=== PATIENT | male | born 1995 | race Caucasian/White ===

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

== ENCOUNTER 2017-12-15 23:12 | Emergency (ER) | payer BC, OTHER ==
[2017-12-15] MEDS ORDERED: DICYCLOMINE 20 MG TAB PO STA (23:41)
--- NOTE | 2017-12-16 00:04 | ED ---
Abdominal Pain HPI - General Chief Complaint: Abdominal Pain Stated Complaint: ABD PAIN Time Seen by Provider: 12/15/17 23:21 Source: patient Mode of arrival: ambulatory Limitations: no limitations - History of Present Illness Initial Comments: This patient is 22-year-old man who presents to be evaluated for left upper quadrant pain. He states that he had noted the pain Thursday morning when he got out of bed. He is not able to characterize the pain well stating that it just hurts. Pain is moderate, constant, and he is noted that it is worse with movement or if he presses there. No relieving factors. He has not had any associated symptoms but there may possibly be an element of constipation. MD Complaint: abdominal pain Onset/Timin -: days(s) Location: LUQ Migration to: no migration Severity: moderate Quality: other (Unable to characterize) Consistency: constant Improves With: nothing Worsens With: movement Associated Symptoms: denies other symptoms - Related Data Home Medications Medication Instructions Recorded Confirmed Atomoxetine HCl [Strattera] 60 mg PO QAM 03/13/15 12/15/17 Fexofenadine HCl [Dorothea Allergy] 180 mg PO DAILY 12/15/17 12/15/17 Ibuprofen [Motrin] 600 mg PO DAILY 12/15/17 12/15/17 Kapvay(Clonidine) Er 0.1mg 0.2 mg PO 12/15/17 12/15/17 Paxil Cr 50mg 50 mg PO DAILY 12/15/17 12/15/17 lamoTRIgine [LaMICtal] 75 mg PO HS 12/15/17 12/15/17 lamoTRIgine [LaMICtal] 150 mg PO QA 12/15/17 12/15/17 traZODone HCL 150 mg PO 12/15/17 12/15/17 Allergies Allergy/AdvReac Type Severity Reaction Status Date / Time Cephalosporins Allergy Anaphylaxis Verified 12/15/17 23:28 Review of Systems ROS Statement: Those systems with pertinent positive or pertinent negative responses have been documented in the HPI. ROS Other: All systems not noted in ROS Statement are negative. Constitutional: Denies: fever, chills Respiratory: Denies: cough, dyspnea Cardiovascular: Denies: chest pain, palpitations Gastrointestinal: Reports: abdominal pain, constipation. Denies: nausea, vomiting, diarrhea, melena, hematochezia Genitourinary: Denies: dysuria, frequency, hematuria, testicular pain, testicular mass Musculoskeletal: Denies: back pain Skin: Denies: rash Neurological: Denies: headache Past Medical History Additional Past Medical History / Comment(s): autism spectrum disorder History of Any Multi-Drug Resistant Organisms: None Reported Past Surgical History: Ear Surgery, Tonsillectomy Past Psychological History: Anxiety, Depression, Panic Disorder Smoking Status: Never smoker Past Alcohol Use History: None Reported Past Drug Use History: None Reported General Exam Limitations: no limitations General appearance: alert, in no apparent distress Head exam: Present: atraumatic, normocephalic Eye exam: Present: normal appearance. Absent: scleral icterus, conjunctival injection ENT exam: Present: normal oropharynx Respiratory exam: Present: normal lung sounds bilaterally. Absent: respiratory distress, wheezes, rales, rhonchi, stridor Cardiovascular Exam: Present: regular rate, normal rhythm, normal heart sounds. Absent: systolic murmur, diastolic murmur, rubs, gallop GI/Abdominal exam: Present: soft, tenderness, normal bowel sounds. Absent: distended, guarding, rebound, rigid, organomegaly, mass, pulsatile mass, hernia Extremities exam: Present: normal inspection, normal capillary refill. Absent: pedal edema, calf tenderness Back exam: Present: normal inspection. Absent: CVA tenderness (R), CVA tenderness (L) Neurological exam: Present: alert Skin exam: Present: warm, dry, intact, normal color. Absent: rash Course Vital Signs 12/15/17 12/16/17 23:12 00:16 Temperature 98.1 F 97.6 F Pulse Rate 112 H 97 Respiratory 20 18 Rate Blood Pressure 135/94 117/71 O2 Sat by Pulse 98 96 Oximetry Medical Decision Making - Lab Data Result diagrams: 12/16/17 00:13 12/16/17 00:13 Lab Results 12/16/17 12/16/17 12/16/17 Range/Units 00:13 00:13 00:13 WBC 7.6 (4.0-11.0) k/uL RBC 4.35 (4.30-5.90) m/uL Hgb 12.2 L (13.0-17.5) gm/dL Hct 35.5 L (39.0-53.0) % MCV 81.7 (80.0-100.0) fL MCH 28.1 (25.0-35.0) pg MCHC 34.4 (31.0-37.0) g/dL RDW 13.5 (11.5-15.5) % Plt Count 325 (150-450) k/uL Neutrophils % 52 % Lymphocytes % 33 % Monocytes % 9 % Eosinophils % 4 % Basophils % 1 % Neutrophils # 4.0 (1.3-7.7) k/uL Lymphocytes # 2.5 (1.0-4.8) k/uL Monocytes # 0.7 (0-1.0) k/uL Eosinophils # 0.3 (0-0.7) k/uL Basophils # 0.1 (0-0.2) k/uL Sodium 142 (137-145) mmol/L Potassium 4.0 (3.5-5.1) mmol/L Chloride 107 (98-107) mmol/L Carbon Dioxide 24 (22-30) mmol/L Anion Gap 11 mmol/L BUN 11 (9-20) mg/dL Creatinine 0.70 (0.66-1.25) mg/dL Est GFR (CKD-EPI)AfAm >90 (>60 ml/min/1.73 sqM) Est GFR (CKD-EPI)NonAf >90 (>60 ml/min/1.73 sqM) Glucose 97 (74-99) mg/dL Calcium 9.5 (8.4-10.2) mg/dL Total Bilirubin 0.3 (0.2-1.3) mg/dL AST 23 (17-59) U/L ALT 33 (21-72) U/L Alkaline Phosphatase 142 H (38-126) U/L C-Reactive Protein 25.3 H (<10.0) mg/L Total Protein 7.0 (6.3-8.2) g/dL Albumin 4.6 (3.5-5.0) g/dL Amylase 36 (30-110) U/L Lipase 66 (23-300) U/L Urine Color Yellow Urine Appearance Clear (Clear) Urine pH 6.5 (5.0-8.0) Ur Specific [place] 1.020 (1.001-1.035) Urine Protein Trace H (Negative) Urine Glucose (UA) Negative (Negative) Urine Ketones Negative (Negative) Urine Blood Negative (Negative) Urine Nitrite Negative (Negative) Urine Bilirubin Negative (Negative) Urine Urobilinogen 3.0 (<2.0) mg/dL Ur Leukocyte Esterase Negative (Negative) Disposition Clinical Impression: Abdominal pain Disposition: HOME SELF-CARE Condition: Good Instructions: Abdominal Pain (ED) Is patient prescribed a controlled substance at d/c from ED?: No Referrals: Jamaal Rogers MD [Primary Care Provider] - 1-2 days
[2017-12-16 00:17] VITALS: RESP 18
--- NOTE | 2017-12-16 00:17 | XR ---
EXAMINATION TYPE: XR KUB DATE OF EXAM: 12/16/2017 COMPARISON: 03/13/2015 HISTORY: Left upper quadrant pain TECHNIQUE: 2 views upright FINDINGS: There is no sign of intestinal obstruction or pneumoperitoneum. There is retained fecal mat erial. There are no pathologic calcifications. Lung bases are clear. There is no evidence of a mass. IMPRESSION: Nonacute abdomen. There is probably constipation. Constipation is less than last exam.
[2017-12-16 00:22] LABS: Basophils # (A) 0.1 k/uL (0-0.2); Basophils % (A) 1 %; Eosinophils # (A) 0.3 k/uL (0-0.7); Eosinophils % (A) 4 %; HCT 35.5 % (39.0-53.0); HGB 12.2 gm/dL (13.0-17.5); Lymphocytes # (A) 2.5 k/uL (1.0-4.8); Lymphocytes % (A) 33 %; MCH 28.1 pg (25.0-35.0); MCHC 34.4 g/dL (31.0-37.0); MCV 81.7 fL (80.0-100.0); Mean Platelet Volume 7.6; Monocytes # (A) 0.7 k/uL (0-1.0); Monocytes % (A) 9 %; Neutrophils % (A) 52 %; Platelet Count 325 k/uL (150-450); RBC 4.35 m/uL (4.30-5.90); RDW 13.5 % (11.5-15.5); WBC 7.6 k/uL (4.0-11.0)
[2017-12-16 00:34] LABS: ALT 33 U/L (21-72); AST 23 U/L (17-59); Albumin 4.6 g/dL (3.5-5.0); Alkaline Phosphatase 142 U/L (38-126); Amylase 36 U/L (30-110); Anion Gap 11 mmol/L; Blood Urea Nitrogen 11 mg/dL (9-20); C Reactive Protein 25.3 mg/L (<10.0); Calcium 9.5 mg/dL (8.4-10.2); Carbon Dioxide 24 mmol/L (22-30); Chloride 107 mmol/L (98-107); Glucose 97 mg/dL (74-99); Lipase 66 U/L (23-300); Sodium 142 mmol/L (137-145); Total Bilirubin 0.3 mg/dL (0.2-1.3)
[2017-12-16 00:36] LABS: Appearance,Urine Clear (Clear); Bilirubin,Urine Negative (Negative); Blood,Urine Negative (Negative); Color,Urine Yellow; Glucose,Urine (UA) Negative (Negative); Ketones,Urine Negative (Negative); Leukocyte Esterase,Urine Negative (Negative); Nitrite,Urine Negative (Negative); PH, Urine 6.5 (5.0-8.0); Protein,Urine Trace (Negative)
[2017-12-16] MEDS ORDERED: MAGNESIUM CITRATE 296 ML BOTTLE PO ONE (00:59)
[2017-12-16 01:22] VITALS: BP 147/64; PULSE 93; TEMP 97.8
== END 2017-12-16 01:22 | disposition home or self-care (01) ==
LOC: EC 23:12 → EEVIPCON 23:12 → EC 12-16 01:22
DX: R10.12 Left upper quadrant pain (principal); K59.00 Constipation, unspecified; F41.9 Anxiety disorder, unspecified; F32.9 Major depressive disorder, single episode, unspecified; F84.0 Autistic disorder; Z79.1 Long term (current) use of non-steroidal anti-inflammatories (NSAID); Z79.899 Other long term (current) drug therapy; Z88.1 Allergy status to other antibiotic agents
CPT/HCPCS: 36415; 74018; 80053; 81003; 82150; 83690; 85025; 86140; 99284

== ENCOUNTER → 2018-06-30 | Day surgery (SDC) | payer BC, MEDICARE, OTHER ==
[2018-06-22 12:52] VITALS: BMI 30.3
[~2018-06-30] MED LIST: CLINDAMYCIN 600 MG in DEXTROSE 5% IN WATER 50 ML IVPB ONE; DEXAMETHASONE SOD PHOS (MDV) 100 MG/10 ML VIAL ONE; DEXAMETHASONE SOD PHOSPHATE 10 MG/ML 1 ML VIAL IV ONE; DEXAMETHASONE SOD PHOSPHATE 4 MG/ML 1 ML VIAL IV ONE; FAMOTIDINE 20 MG/2 ML VIAL IV ONE; HYDROmorphone 0.5 MG/0.5 ML SYRINGE IVP PRN; LACTATED RINGERS 1,000 ML IV ONE; LACTATED RINGERS 1,000 ML IV SCH; LIDOCAINE 1% 20 ML VIAL (10MG/ML) FOR IV START INTRADERMA PRN; LIDOCAINE 1%-EPI 1:100,000 20 ML VIAL SQ ONE; MIDAZOLAM (PF) 2 MG/2 ML VIAL IV PRN; OFLOXACIN 0.3% OTIC DROPS 5 ML BTL BOTH EARS ONE; ONDANSETRON 4 MG/2 ML VIAL IVP ONE; ONDANSETRON 4 MG/2 ML VIAL ONE; OXYMETAZOLINE 0.05% NASL SPRAY 1 SPRAY BOTTLE MISCELLANE ONE; PHENYLEPHRINE-0.9% NACL SYG 1 MG/10 ML SYRINGE ONE; PROPOFOL 10 MG/ML 20 ML VIAL IV ONE; SCOPOLAMINE 1.5MG/72HR PATCH TRANSDERM ONE; SUCCINYLCHOLINE CHLORIDE VIAL 200 MG/10 ML VIAL IV ONE; fentaNYL (PF) 50 MCG/ML 2 ML AMP ONE
[2018-06-30] MEDS: OXYMETAZOLINE 0.05% NASL SPRAY 1 SPRAY BOTTLE NASAL ONE ×7 (09:48→10:11)
--- NOTE | 2018-06-30 11:32 | P.OP ---
Date of Procedure: 06/30/18 Preoperative Diagnosis: Chronic otitis media ALLERGIC rhinitis Chronic sinusitis Postoperative Diagnosis: Same Procedure(s) Performed: Bilateral ventilation tube placement Blood draw for ALLERGY testing Balloon sinus plasty of the bilateral maxillary, frontal, sphenoid sinuses Anesthesia: YULIANA Surgeon: Johnny Groves Estimated Blood Loss (ml): 3 Pathology: none sent Condition: stable Disposition: PACU Indications for Procedure: Is a 22-year-old white male whose had difficulties with chronic otitis media and chronic sinusitis as well as possible ALLERGIES. He's had multiple sets of ventilation tubes in the past Operative Findings: Bilateral serous otitis media with myringosclerosis bilaterally, narrowing and obstruction of the bilateral maxillary ostia, sphenoid ostia and frontal sinus ostia Description of Procedure: The patient was brought in the operative suite and placed in a supine position. Patient underwent induction of general anesthesia with oral endotracheal intubation without difficulty. The patient was prepped and draped in usual aseptic fashion. The Zeiss microscope was positioned over the left ear and cerumen was cleaned from the external auditory canal. An anteroinferior myringotomy was placed in radial fashion and the middle ear effusion was aspirated. A 1.27 mm T-tube ventilation tube was placed without difficulty. Ofloxacin drops were placed followed by sterile cotton ball. Attention was then turned to the right where the procedure was followed exactly as it had been on the left. Once this was completed the attention was turned to the nasal cavities. Full 0 endoscopic examination is performed bilaterally. The orbits were in the operating field for monitoring throughout the case. Beginning on the left the middle turbinate was medialized with a Hartley elevator. The maxillary ostia was noted to be obstructed as well as the sphenoid ostia and frontal ostia. Therefore these were all treated with balloon sinus plasty with the acclarent light guided system utilizing direct visualization as well as the light-tipped probe for localization of the lighted tip followed by the balloon sinus plasty. The ostia were then checked and were all patent. Attention was then turned to the right where the procedures were followed as they had been on the left including balloon sinus plasty of the maxillary sphenoid and frontal sinus. Once this was completed there was noted to be good hemostasis. Therefore no packing was placed. The patient was then suctioned in oral gastric fashion. The patient was allowed to emerge from general anesthesia having tolerated procedure well and was extubated in the operating suite and transferred to the postop recovery area in satisfactory condition.
[2018-06-30 11:54] VITALS: TEMP 97
[2018-06-30 12:29] VITALS: RESP 16
[2018-06-30 13:22] VITALS: BP 113/77; PULSE 92
== END | disposition home or self-care (01) ==
LOC: OR 09:35
PROVIDERS: ATTEND Otolaryngology
DX: H65.23 Chronic serous otitis media, bilateral (principal); H74.03 Tympanosclerosis, bilateral; J32.9 Chronic sinusitis, unspecified; J45.909 Unspecified asthma, uncomplicated; F32.9 Major depressive disorder, single episode, unspecified; F84.0 Autistic disorder; Z88.4 Allergy status to anesthetic agent; Z88.1 Allergy status to other antibiotic agents; Z79.1 Long term (current) use of non-steroidal anti-inflammatories (NSAID); Z79.899 Other long term (current) drug therapy
CPT/HCPCS: 69436; 31298; 31295; J0330; J2405; J3010; J1100; J2370; J2704

== ENCOUNTER → 2018-08-06 | Outpatient (CLI) | payer BC, MEDICARE, OTHER ==
[2018-08-06 15:22] LABS: Basophils % (A) 1 %; Eosinophils # (A) 0.2 k/uL (0-0.7); Eosinophils % (A) 3 %; HCT 39.4 % (39.0-53.0); HGB 13.3 gm/dL (13.0-17.5); Lymphocytes # (A) 2.9 k/uL (1.0-4.8); Lymphocytes % (A) 38 %; MCH 27.2 pg (25.0-35.0); MCHC 33.8 g/dL (31.0-37.0); MCV 80.5 fL (80.0-100.0); Mean Platelet Volume 11.4; Monocytes # (A) 0.5 k/uL (0-1.0); Monocytes % (A) 7 %; Neutrophils # (A) 3.7 k/uL (1.3-7.7); Neutrophils % (A) 50 %; Platelet Count 244 k/uL (150-450); RBC 4.89 m/uL (4.30-5.90); RDW 14.8 % (11.5-15.5); WBC 7.4 k/uL (4.0-11.0)
[2018-08-06 19:02] LABS: Albumin 4.8 g/dL (3.80-4.90); Albumin/Globulin Ratio 3.2 (1.60-3.17); Anion Gap 14.4 mmol/L (4.00-12.00); Calcium 9.4 mg/dL (8.7-10.3); Carbon Dioxide 19.6 mmol/L (21.6-31.8); Globulin 1.5 g/dL (1.6-3.3); LDL Cholesterol,Calculated 120.4 mg/dL (0.0-131.0); Potassium 4.7 mmol/L (3.5-5.5); Total Bilirubin 0.4 mg/dL (0.2-1.2); Total Protein 6.3 g/dL (6.2-8.2); VLDL Calculation 15.6 mg/dL (5.00-40.00)
[2018-08-06 22:16] LABS: Hemoglobin A1C 5.8 % (4.0-6.0)
== END | disposition home or self-care (01) ==
LOC: LABWHC1 11:19
PROVIDERS: ATTEND Internal Medicine
DX: E16.2 Hypoglycemia, unspecified (principal); D80.2 Selective deficiency of immunoglobulin A [IgA]
CPT/HCPCS: 36415; 80053; 80061; 82784; 83036; 85025

== ENCOUNTER → 2018-08-25 | Outpatient (CLI) | payer BC, MEDICARE, OTHER ==
[2018-08-25 12:59] VITALS: BMI 30.1
== END ==
LOC: DBWHC3 09:57
PROVIDERS: ATTEND Internal Medicine
DX: R73.09 Other abnormal glucose (principal)
CPT/HCPCS: 97802

== ENCOUNTER 2021-10-26 00:18 | Emergency (ER) | payer BC, MEDICARE, OTHER ==
[2021-10-26 01:18] VITALS: BP 107/69; PULSE 92; RESP 17; TEMP 98.2
--- NOTE | 2021-10-26 01:27 | ED ---
Head Injury HPI - General Stated complaint: Headache, stiff neck Time Seen by Provider: 10/26/21 01:17 Source: RN notes reviewed - History of Present Illness Initial comments: This is a pleasant 25-year-old male with a history of autism. He presents with his mother complaining of a headache which she started yesterday. However this headache is not currently present. He states he comes for a few minutes at a time and goes away. It involves the left side of his head and left neck area. Patient states this happened about 8 times and resolved. Patient has no significant history of headaches. Has been no fever. No numbness or tingling. No extremity weakness. No vision disturbance. No hearing disturbance. Patient states that the headache feels like a burning sensation when is there and then it goes away. no fever or chills, no changes in vision or hearing, no sore throat or difficulty with speech, no neck pain, no chest pain or shortness of breath, no abdominal pain, no nausea or vomiting, no changes in urination or patient has had some mild constipation recently, no numbness or tingling, no extremity pain, no skin rashes or lesions. - Related Data Home Medications Medication Instructions Recorded Confirmed Atomoxetine HCl [Strattera] 60 mg PO QAM 03/13/15 06/22/18 Kapvay(Clonidine) Er 0.1mg 0.2 mg PO HS 12/15/17 06/22/18 lamoTRIgine [LaMICtal] 75 mg PO HS 12/15/17 06/22/18 lamoTRIgine [LaMICtal] 150 mg PO QAM 12/15/17 06/22/18 Advil Liquid Gel 200 mg PO DAILY 06/22/18 Albuterol Inhaler [Ventolin Hfa 1 - 2 puff INHALATION RT-Q6H PRN 06/22/18 06/22/18 Inhaler] Cetirizine HCl [Zyrtec] 10 mg PO DAILY 06/22/18 06/22/18 Cholecalciferol (Vitamin D3) 2,000 unit PO 06/22/18 [Vitamin D3] Cholecalciferol (Vitamin D3) 2,000 unit PO DAILY 06/22/18 06/22/18 [Vitamin D3] Famotidine [Pepcid] 20 mg PO DAILY 06/22/18 06/22/18 PARoxetine HCL [Paxil Cr] 12.5 mg PO HS 06/22/18 06/22/18 PARoxetine HCL [Paxil Cr] 37.5 mg PO HS 06/22/18 06/22/18 [facility] Probioti 1 cap PO DAILY 06/22/18 diphenhydrAMINE [Benadryl] 25 mg PO HS 06/22/18 06/22/18 traZODone HCL 150 mg PO HS 06/22/18 06/22/18 Allergies/Adverse reactions: Allergies Allergy/AdvReac Type Severity Reaction Status Date / Time Cephalosporins Allergy Anaphylaxis Verified 10/26/21 01:13 corn Allergy Unknown Verified 10/26/21 01:13 midazolam [From Versed] Allergy combative Verified 10/26/21 01:13 milk Allergy Unknown Verified 10/26/21 01:13 wheat Allergy Unknown Verified 10/26/21 01:13 Review of Systems ROS Statement: Those systems with pertinent positive or pertinent negative responses have been documented in the HPI. ROS Other: All systems not noted in ROS Statement are negative. Past Medical History Past Medical History: Asthma, GERD/Reflux, Hearing Disorder / Deafness, Skin Disorder Additional Past Medical History / Comment(s): Autism Spectrum Disorder, mild. ANEMIC WHEN LITTLE. HX GROWTH HORMONE TX. HX MULT EAR INFECTIONS, SL HEARING LOSS. HYPERHYDROSIS. ALLERGIES; FREQ SINUS INFECTIONS; IGA DEFICIENCY. History of Any Multi-Drug Resistant Organisms: None Reported Past Surgical History: Adenoidectomy, Ear Surgery, Tonsillectomy Additional Past Surgical History / Comment(s): BMT, MANY. SINUS SURGRY. Past Anesthesia/Blood Transfusion Reactions: Previous Problems w/ Anesthesia, Family History of Problems w/ Anesthesia Additional Past Anesthesia/Blood Transfusion Reaction / Comment(s): AFTER TONSIL SURGERY, WAS PUT ON VENT BRIEFLY D/T BREATHING PROB; COMBATIVE WHEN GIVEN VERSED. MOTHER HAD BREATHING ISSUE X1. Past Psychological History: ADD/ADHD, Anxiety, Depression, Panic Disorder Additional Psychological History / Comment(s): NEEDLE/BLOOD PHOBIA Past Alcohol Use History: None Reported Past Drug Use History: None Reported - Past Family History Mother Family Medical History: Cancer Additional Family Medical History / Comment(s): CERVICAL General Exam - General Exam Comments Initial Comments: Vital signs stable, patient nontoxic appearing, no distress. General appearance: alert, in no apparent distress Head exam: Present: atraumatic, normocephalic, normal inspection Eye exam: Present: normal appearance, PERRL, EOMI. Absent: scleral icterus, conjunctival injection, periorbital swelling ENT exam: Present: normal exam, normal oropharynx, mucous membranes dry, mucous membranes moist, TM's normal bilaterally, normal external ear exam, other Neck exam: Present: normal inspection, full ROM, other (Tympanostomy tube noted in the left EAC embedded in cerumen, no evidence of infectious process). Absent: tenderness, meningismus, lymphadenopathy Respiratory exam: Present: normal lung sounds bilaterally. Absent: respiratory distress, wheezes, rales, rhonchi, stridor, chest wall tenderness, accessory muscle use, decreased breath sounds, prolonged expiratory Cardiovascular Exam: Present: regular rate, normal rhythm, normal heart sounds. Absent: systolic murmur, diastolic murmur, rubs, gallop, clicks GI/Abdominal exam: Present: soft. Absent: distended, tenderness, guarding, rebound, rigid Extremities exam: Present: normal inspection, full ROM, normal capillary refill. Absent: tenderness, pedal edema, joint swelling, calf tenderness Back exam: Present: normal inspection, full ROM. Absent: muscle spasm, paraspinal tenderness, vertebral tenderness, rash noted Neurological exam: Present: alert, oriented X3, CN II-XII intact, normal gait. Absent: abnormal gait, motor sensory deficit, reflexes normal Expanded Patient oriented to: Present: person, place, time Speech: Present: fluid speech Cranial nerves: EOM's Intact: Normal, Gag Reflex: Normal, Tongue Deviation: Normal, Nystagmus: Normal, Facial Sensation: Normal, Facial Palsy with Forehead Movement: Normal, Facial Palsy without Forehead Movement: Normal Cerebellar function: Finger to Nose: Normal, Heel to [place]: Normal, Romberg: Normal Psychiatric exam: Present: normal affect, normal mood. Absent: anxious Skin exam: Present: warm, dry, intact, normal color. Absent: rash, cyanosis, diaphoretic, erythema, urticaria, vesicles, petechiae, pallor, mottled, abrasion Course Vital Signs 10/26/21 01:14 Temperature 98.2 F Pulse Rate 92 Respiratory 17 Rate Blood Pressure 107/69 O2 Sat by Pulse 97 Oximetry Medical Decision Making - Medical Decision Making Patient presents with left-sided headache which is intermittent actually not present at this time. Headache consistent with possible episodic hemicrania. Early shingles is another thought however there is no rash. Patient is neurologically intact. Patient has no neurologic deficit. No evidence of infectious process. No evidence of ear infection. Airways patent. Throat is clear. We'll treat with naproxen. I told the mom to strip picker [id number] Aleve and give a dose of 220 mg over 12 hours. Follow-up with neurology on Thursday. Given the patient's asymptomatic appearance an intact neurological status, I do not believe any imaging is warranted at this time. Meter Shop Superintendent after Trachy Disposition Clinical Impression: Headache Disposition: HOME SELF-CARE Condition: Good Instructions (If sedation given, give patient instructions): Acute Headache (ED) Additional Instructions: Headache, possibly consistent with episodic hemicrania. Try [id number] Aleve 220 mg every 12 hours for headache prophylaxis. All the neurologist at 80 Thursday morning to schedule follow-up appointment. If anything worsens in the interim return to the ER immediately. If any new symptoms develop return to the ER immediately. Follow-up with your regular physician as directed. Return to the ER immediately if any symptoms worsen, new symptoms arise, or any other problems develop. Is patient prescribed a controlled substance at d/c from ED?: No Referrals: Astrid Izquierdo MD [Primary Care Provider] - 10/28/21 Judith Lopez MD [REFERRING] - 10/28/21 8:00 am Time of Disposition:
== END 2021-10-26 01:35 | disposition home or self-care (01) ==
LOC: EC 00:18
DX: R51.9 Headache, unspecified (principal); J45.909 Unspecified asthma, uncomplicated; Z88.1 Allergy status to other antibiotic agents; Z91.011 Allergy to milk products; Z91.048 Other nonmedicinal substance allergy status
CPT/HCPCS: 99284

== ENCOUNTER 2024-04-21 05:03 | Emergency (ER) | payer BC, OTHER ==
--- NOTE | 2024-04-21 05:38 | ED ---
General Adult HPI - General Source: patient, RN notes reviewed, old records reviewed Mode of arrival: ambulatory Limitations: altered mental status <Brian Welsh - Last Filed: 04/21/24 06:34> <Vamsi Angel - Last Filed: 04/21/24 08:17> - General Chief complaint: Allergic Reaction Stated complaint: Swollen lips Time Seen by Provider: 04/21/24 05:25 - History of Present Illness Initial comments: Patient is a 28-year-old male who presents emergency department for allergic reaction. Presents with his mother. Has a history of autism. Has been complaining of some dental pain and has been using Orajel as well as ibuprofen. Patient received a dose of his mother's pain medication, oral morphine yesterday. They began noticing some lip puffiness shortly after at approximately 9 PM. Went to sleep and awoke and the upper lip was more swollen which is why they present for further evaluation at this time. Denies shortness of breath, difficulty in breathing, difficulty and tolerating oral secretions. Denies nausea or vomiting. Denies any other acute complaints at this time. Presents for further evaluation over concern for allergic reaction. (Brian Welsh) - Related Data Home Medications Medication Instructions Recorded Confirmed Atomoxetine HCl [Strattera] 60 mg PO QAM 03/13/15 06/22/18 Kapvay(Clonidine) Er 0.1mg 0.2 mg PO HS 12/15/17 06/22/18 lamoTRIgine [LaMICtal] 75 mg PO HS 12/15/17 06/22/18 lamoTRIgine [LaMICtal] 150 mg PO QAM 12/15/17 06/22/18 Advil Liquid Gel 200 mg PO DAILY 06/22/18 Albuterol Inhaler [Ventolin Hfa 1 - 2 puff INHALATION RT-Q6H PRN 06/22/18 06/22/18 Inhaler] Cetirizine HCl [Zyrtec] 10 mg PO DAILY 06/22/18 06/22/18 Cholecalciferol (Vitamin D3) 2,000 unit PO 06/22/18 [Vitamin D3] Cholecalciferol (Vitamin D3) 2,000 unit PO DAILY 06/22/18 06/22/18 [Vitamin D3] Famotidine [Pepcid] 20 mg PO DAILY 06/22/18 06/22/18 PARoxetine HCL [Paxil Cr] 12.5 mg PO HS 06/22/18 06/22/18 PARoxetine HCL [Paxil Cr] 37.5 mg PO HS 06/22/18 06/22/18 [facility] Probioti 1 cap PO DAILY 06/22/18 diphenhydrAMINE [Benadryl] 25 mg PO HS 06/22/18 06/22/18 traZODone HCL 150 mg PO HS 06/22/18 06/22/18 Previous Rx's Medication Instructions Recorded Amoxic-Pot Clav 875-125Mg 1 tab PO Q12HR 10 Days #20 tab 04/21/24 [Augmentin 875-125] Allergies Allergy/AdvReac Type Severity Reaction Status Date / Time Cephalosporins Allergy Anaphylaxis Verified 04/21/24 05:10 corn Allergy Unknown Verified 04/21/24 05:10 midazolam [From Versed] Allergy combative Verified 04/21/24 05:10 milk Allergy Unknown Verified 04/21/24 05:10 morphine Allergy Swelling Verified 04/21/24 05:10 wheat Allergy Unknown Verified 04/21/24 05:10 Review of Systems ROS Other: All systems not noted in ROS Statement are negative. <Brian Welsh - Last Filed: 04/21/24 06:34> ROS Other: All systems not noted in ROS Statement are negative. <Vamsi Angel - Last Filed: 04/21/24 08:17> ROS Statement: Those systems with pertinent positive or pertinent negative responses have been documented in the HPI. Review of Systems: CONST: Denies fever EYES: Denies blurry vision ENT: Endorses lip swelling C/V: Denies Chest pain RESP: Denies shortness of breath GI: Denies abdominal pain : Denies dysuria SKIN: Denies rash. MSK: Denies joint pain. NEURO: Denies headache (Brian Welsh) Past Medical History Past Medical History: Asthma, GERD/Reflux, Hearing Disorder / Deafness, Skin Disorder Additional Past Medical History / Comment(s): Autism Spectrum Disorder, mild. ANEMIC WHEN LITTLE. HX GROWTH HORMONE TX. HX MULT EAR INFECTIONS, SL HEARING LOSS. HYPERHYDROSIS. ALLERGIES; FREQ SINUS INFECTIONS; IGA DEFICIENCY. History of Any Multi-Drug Resistant Organisms: None Reported Past Surgical History: Adenoidectomy, Ear Surgery, Tonsillectomy Additional Past Surgical History / Comment(s): BMT, MANY. SINUS SURGRY. Past Anesthesia/Blood Transfusion Reactions: Previous Problems w/ Anesthesia, Family History of Problems w/ Anesthesia Additional Past Anesthesia/Blood Transfusion Reaction / Comment(s): AFTER TONSIL SURGERY, WAS PUT ON VENT BRIEFLY D/T BREATHING PROB; COMBATIVE WHEN GIVEN VERSED. MOTHER HAD BREATHING ISSUE X1. Past Psychological History: ADD/ADHD, Anxiety, Depression, Panic Disorder Past Alcohol Use History: None Reported Past Drug Use History: None Reported - Past Family History Mother Family Medical History: Cancer Additional Family Medical History / Comment(s): CERVICAL <Brian Welsh - Last Filed: 04/21/24 06:34> General Exam Limitations: altered mental status <Brian Welsh - Last Filed: 04/21/24 06:34> - General Exam Comments Initial Comments: General: Appears in no acute distress. HEAD: Normal with no signs of head trauma. EYES: PERRLA, EOMI, conjunctiva normal, no discharge. ENT: Hearing grossly intact, normal oropharynx. Upper lip is edematous and appears to be angioedema. Is not on lisinopril or TERRY inhibitors or ARB's. No stridor auscultated. No tongue edema. No intraoral swelling. Uvula is midline. No posterior oropharyngeal edema. Tolerating oral secretions. RESPIRATORY: Clear breath sounds bilaterally. No wheezes, rales, or rhonchi. No respiratory distress. No hypoxia. C/V: Regular rate and rhythm. S1 and S2 auscultated, no edema, peripheral pulses 2+ and intact throughout ABD: Abd is soft, nontender, nondistended EXT: Normal range of motion, no obvious deformity SKIN: No rashes or lesions observed on exposed skin. NEURO: Alert and oriented x 4. Currently at baseline. (Brian Welsh) Course Vital Signs 04/21/24 04/21/24 04/21/24 05:11 06:02 07:30 Temperature 99.1 F 99.1 F 99.0 F Pulse Rate 86 101 H 91 Respiratory 16 18 17 Rate Blood Pressure 130/80 121/71 118/74 O2 Sat by Pulse 97 95 99 Oximetry Medical Decision Making - Lab Data Result diagrams: 04/21/24 05:54 <Brian Welsh - Last Filed: 04/21/24 06:34> - Lab Data Result diagrams: 04/21/24 05:54 04/21/24 05:54 <Vamsi Angel N - Last Filed: 04/21/24 08:17> - Medical Decision Making Was pt. sent in by a medical professional or institution (VIVIENNE Espinosa, PAEDIATRIC THORACIC PHYSICIAN, urgent care, hospital, or custodial...) When possible be specific @ -No Did you speak to anyone other than the patient for history (EMS, parent, family, police, friend...)? What history was obtained from this source @ -Patient's mother is the primary historian for the patient. Did you review nursing and triage notes (agree or disagree)? Why? @ -I reviewed and agree with nursing and triage notes Were old charts reviewed (outside hosp., previous admission, EMS record, old EKG, old radiological studies, urgent care reports/EKG's, custodial records)? Report findings @ -No old charts were reviewed Differential Diagnosis (chest pain, altered mental status, abdominal pain women, abdominal pain men, vaginal bleeding, weakness, fever, dyspnea, syncope, headache, dizziness, GI bleed, back pain, seizure, CVA, palpatations, mental health, musculoskeletal)? @ -Allergic reaction, angioedema, electrolyte abnormality. This list is not all inclusive. EKG interpreted by me (3pts min.). @ -None done X-rays interpreted by me (1pt min.). @ - CT interpreted by me (1pt min.). @ -None done U/S interpreted by me (1pt. min.). @ -None done What testing was considered but not performed or refused? (CT, X-rays, U/S, labs)? Why? @ -None What meds were considered but not given or refused? Why? @ -None Did you discuss the management of the patient with other professionals (professionals i.e. VIVIENNE Espinosa, PAEDIATRIC THORACIC PHYSICIAN, lab, RT, psych nurse, oncology social work, nuclear medical tech, teacher, chief scientific officer, showcase trimmer)? Give summary @ -No Was smoking cessation discussed for >3mins.? @ -No Was critical care preformed (if so, how long)? @ -No Were there social determinants of health that impacted care today? How? (Homelessness, low income, unemployed, alcoholism, drug addiction, transportation, low edu. Level, literacy, decrease access to med. care, custodial, rehab)? @ -No Was there de-escalation of care discussed even if they declined (Discuss DNR or withdrawal of care, Hospice)? DNR status @ -No What co-morbidities impacted this encounter? (DM, HTN, Smoking, COPD, CAD, Cancer, CVA, ARF, Chemo, Hep., AIDS, mental health diagnosis, sleep apnea, morbid obesity)? @ -None Was patient admitted / discharged? Hospital course, mention meds given and route, prescriptions, significant lab abnormalities, going to OR and other pertinent info. @ -Based on the patient's presentation and physical exam, patient presents emergency department complaining of allergic reaction. Presents with mother. No signs of respiratory distress. No issues with tolerating oral secretions. Swelling is isolated to the patient's upper lip. Is not on any TERRY inhibitor's or ARB's. No known history of angioedema. Patient be administered IV allergy cocktail including steroids, famotidine, fluids, Benadryl. We will obtain basic labs. Patient will be observed here in the department. Patient was in agreement this plan. Symptoms have worsened over the last 8 hours or so. Patient's labs and chest x-ray are still pending at this time. Patient was signed out to Dr. Guzmán pending observation, results of workup, reevaluation. Undiagnosed new problem with uncertain prognosis? @ -No Drug Therapy requiring intensive monitoring for toxicity (Heparin, Nitro, Insulin, Cardizem)? @ -No Were any procedures done? @ -No (Brian Welsh) - Lab Data Lab Results 04/21/24 04/21/24 Range/Units 05:54 05:54 WBC 17.9 H (3.8-10.6) k/uL RBC 4.59 (4.30-5.90) m/uL Hgb 12.8 L (13.0-17.5) gm/dL Hct 38.1 L (39.0-53.0) % MCV 82.9 (80.0-100.0) fL MCH 27.8 (25.0-35.0) pg MCHC 33.5 (31.0-37.0) g/dL RDW 14.3 (11.5-15.5) % Plt Count 379 (150-450) k/uL MPV 8.6 Neutrophils % 75 % Lymphocytes % 16 % Monocytes % 6 % Eosinophils % 2 % Basophils % 0 % Neutrophils # 13.4 H (1.3-7.7) k/uL Lymphocytes # 2.8 (1.0-4.8) k/uL Monocytes # 1.1 H (0-1.0) k/uL Eosinophils # 0.3 (0-0.7) k/uL Basophils # 0.1 (0-0.2) k/uL Sodium 142 (137-145) mmol/L Potassium 4.2 (3.5-5.1) mmol/L Chloride 104 (98-107) mmol/L Carbon Dioxide 25 (22-30) mmol/L Anion Gap 13 mmol/L BUN 13 (9-20) mg/dL Creatinine 0.92 (0.66-1.25) mg/dL Est GFR (CKD-EPI)AfAm >90 (>60 ml/min/1.73 sqM) Est GFR (CKD-EPI)NonAf >90 (>60 ml/min/1.73 sqM) Glucose 117 H (74-99) mg/dL Calcium 9.9 (8.4-10.2) mg/dL Total Bilirubin 0.5 (0.2-1.3) mg/dL AST 21 (17-59) U/L ALT 56 H (4-49) U/L Alkaline Phosphatase 79 (38-126) U/L Total Protein 7.0 (6.3-8.2) g/dL Albumin 4.7 (3.5-5.0) g/dL Disposition <Brian Welsh - Last Filed: 04/21/24 06:34> Is patient prescribed a controlled substance at d/c from ED?: No Time of Disposition: 08:16 <Vamsi Angel - Last Filed: 04/21/24 08:17> Clinical Impression: Allergic reaction Disposition: HOME SELF-CARE Condition: Fair Instructions (If sedation given, give patient instructions): Toothache (ED) Prescriptions: Amoxic-Pot Clav 875-125Mg [Augmentin 875-125] 1 tab PO Q12HR 10 Days #20 tab Referrals: Astrid Izquierdo MD [Primary Care Provider] - 1-2 days
[2024-04-21] MEDS: FAMOTIDINE 20 MG/2 ML VIAL IV STA (05:56)
[2024-04-21] MEDS: SODIUM CHLORIDE 0.9% 1,000 ML IV STA (05:57)
[2024-04-21] MEDS: diphenhydrAMINE 50 MG/ML 1 ML VIAL IVP STA (05:57)
[2024-04-21] MEDS: methylPREDNISolone SOD SUCCI 125 MG/2 ML VIAL IV STA (05:57)
[2024-04-21 06:16] LABS: Basophils # (A) 0.1 k/uL (0-0.2); Basophils % (A) 0 %; Eosinophils # (A) 0.3 k/uL (0-0.7); Eosinophils % (A) 2 %; HCT 38.1 % (39.0-53.0); HGB 12.8 gm/dL (13.0-17.5); Lymphocytes # (A) 2.8 k/uL (1.0-4.8); Lymphocytes % (A) 16 %; MCH 27.8 pg (25.0-35.0); MCHC 33.5 g/dL (31.0-37.0); MCV 82.9 fL (80.0-100.0); Mean Platelet Volume 8.6; Monocytes # (A) 1.1 k/uL (0-1.0); Monocytes % (A) 6 %; Neutrophils # (A) 13.4 k/uL (1.3-7.7); Neutrophils % (A) 75 %; Platelet Count 379 k/uL (150-450); RBC 4.59 m/uL (4.30-5.90); RDW 14.3 % (11.5-15.5); WBC 17.9 k/uL (3.8-10.6)
--- NOTE | 2024-04-21 06:58 | XR ---
EXAMINATION TYPE: XR chest 1V portable DATE OF EXAM: 04/21/2024 COMPARISON: NONE CLINICAL INDICATION: Male, 28 years old with history of allergic reaction; TECHNIQUE: Single AP portable frontal semiupright view of the chest is obtained. FINDINGS: Somewhat low lung volumes. There is no focal air space opacity, pleural effusion, or pneum othorax seen. The cardiac silhouette size is upper limits of normal. The osseous structures are in tact. IMPRESSION: No acute pulmonary infiltrate. [facility], , 04/21/2024 6:56 AM
[2024-04-21 07:48] LABS: ALT 56 U/L (4-49); AST 21 U/L (17-59); African American GFR (CKD) >90 (>60 ml/min/1.73 sqM); Albumin 4.7 g/dL (3.5-5.0); Alkaline Phosphatase 79 U/L (38-126); Anion Gap 13 mmol/L; Blood Urea Nitrogen 13 mg/dL (9-20); Calcium 9.9 mg/dL (8.4-10.2); Carbon Dioxide 25 mmol/L (22-30); Chloride 104 mmol/L (98-107); Glucose 117 mg/dL (74-99); Non-African American GFR(CKD) >90 (>60 ml/min/1.73 sqM); Potassium 4.2 mmol/L (3.5-5.1); Sodium 142 mmol/L (137-145); Total Bilirubin 0.5 mg/dL (0.2-1.3)
[2024-04-21] MEDS: AMOXIC-POT CLAV 875-125MG 1 EACH TAB PO STA (08:06)
[2024-04-21 08:40] VITALS: BP 104/75; PULSE 96; RESP 18; TEMP 98.7
== END 2024-04-21 09:04 | disposition home or self-care (01) ==
LOC: EC 05:03
DX: K08.89 Other specified disorders of teeth and supporting structures (principal); T40.2X5A Adverse effect of other opioids, initial encounter; Z88.1 Allergy status to other antibiotic agents; Z91.011 Allergy to milk products; Z91.018 Allergy to other foods
CPT/HCPCS: 36415; 80053; 85025; 71045; 99283; 96374; 96375; 96361; J1200; J3490; J2919

== ENCOUNTER 2024-04-22 15:33 | Observation (INO) | payer BC, OTHER ==
--- NOTE | 2024-04-22 16:27 | ED ---
ENT HPI - General Chief complaint: Dental/Oral Stated complaint: facial swelling/poss allergic reaction Source: patient, family, RN notes reviewed Mode of arrival: wheelchair Limitations: no limitations - History of Present Illness Initial comments: Quick note: This is a 28-year-old male with history of autism presenting with mother for right facial and lip swelling x 2 days. Patient was seen in this ER yesterday following use of morphine for pain attributed to x 2 oral abscesses causing facial and and lip edema. Patient received allergy cocktail including histamine blockers and steroids while in ER and discharged with Augmentin for tooth infection. Mother states patient went to the dentist this morning, received a Medrol Dosepak but return to ER due to worsening right-sided facial swelling causing temporary occlusion of right eye that is since resolved. Patient's main complaint today is facial swelling and diffuse headache (12/11). - Related Data Home Medications Medication Instructions Recorded Confirmed Atomoxetine HCl [Strattera] 60 mg PO QAM 03/13/15 06/22/18 Kapvay(Clonidine) Er 0.1mg 0.2 mg PO HS 12/15/17 06/22/18 lamoTRIgine [LaMICtal] 75 mg PO HS 12/15/17 06/22/18 lamoTRIgine [LaMICtal] 150 mg PO QAM 12/15/17 06/22/18 Advil Liquid Gel 200 mg PO DAILY 06/22/18 Albuterol Inhaler [Ventolin Hfa 1 - 2 puff INHALATION RT-Q6H PRN 06/22/18 06/22/18 Inhaler] Cetirizine HCl [Zyrtec] 10 mg PO DAILY 06/22/18 06/22/18 Cholecalciferol (Vitamin D3) 2,000 unit PO 06/22/18 [Vitamin D3] Cholecalciferol (Vitamin D3) 2,000 unit PO DAILY 06/22/18 06/22/18 [Vitamin D3] Famotidine [Pepcid] 20 mg PO DAILY 06/22/18 06/22/18 PARoxetine HCL [Paxil Cr] 12.5 mg PO HS 06/22/18 06/22/18 PARoxetine HCL [Paxil Cr] 37.5 mg PO HS 06/22/18 06/22/18 [facility] Probioti 1 cap PO DAILY 06/22/18 diphenhydrAMINE [Benadryl] 25 mg PO HS 06/22/18 06/22/18 traZODone HCL 150 mg PO HS 06/22/18 06/22/18 Previous Rx's Medication Instructions Recorded Amoxic-Pot Clav 875-125Mg 1 tab PO Q12HR 1 Days #20 tab 04/21/24 [Augmentin 875-125] Amoxic-Pot Clav 875-125Mg 1 tab PO Q12HR 10 Days #20 tab 04/21/24 [Augmentin 875-125] Allergies Allergy/AdvReac Type Severity Reaction Status Date / Time Cephalosporins Allergy Anaphylaxis Verified 04/22/24 15:43 corn Allergy Unknown Verified 04/22/24 15:43 midazolam [From Versed] Allergy combative Verified 04/22/24 15:43 milk Allergy Unknown Verified 04/22/24 15:43 morphine Allergy Swelling Verified 04/22/24 15:43 wheat Allergy Unknown Verified 04/22/24 15:43 Review of Systems ROS Statement: Those systems with pertinent positive or pertinent negative responses have been documented in the HPI. ROS Other: All systems not noted in ROS Statement are negative. Past Medical History Past Medical History: Asthma, GERD/Reflux, Hearing Disorder / Deafness, Skin Disorder Additional Past Medical History / Comment(s): Autism Spectrum Disorder, mild. ANEMIC WHEN LITTLE. HX GROWTH HORMONE TX. HX MULT EAR INFECTIONS, SL HEARING LOSS. HYPERHYDROSIS. ALLERGIES; FREQ SINUS INFECTIONS; IGA DEFICIENCY. History of Any Multi-Drug Resistant Organisms: None Reported Past Surgical History: Adenoidectomy, Ear Surgery, Tonsillectomy Additional Past Surgical History / Comment(s): BMT, MANY. SINUS SURGRY. Past Anesthesia/Blood Transfusion Reactions: Previous Problems w/ Anesthesia, Family History of Problems w/ Anesthesia Additional Past Anesthesia/Blood Transfusion Reaction / Comment(s): AFTER TONSIL SURGERY, WAS PUT ON VENT BRIEFLY D/T BREATHING PROB; COMBATIVE WHEN GIVEN VERSED. MOTHER HAD BREATHING ISSUE X1. Past Psychological History: ADD/ADHD, Anxiety, Depression, Panic Disorder Past Alcohol Use History: None Reported Past Drug Use History: None Reported - Past Family History Mother Family Medical History: Cancer Additional Family Medical History / Comment(s): CERVICAL General Exam Limitations: no limitations General appearance: alert, in no apparent distress Head exam: Present: atraumatic, normocephalic, normal inspection Eye exam: Present: normal appearance, PERRL, EOMI. Absent: scleral icterus, conjunctival injection, periorbital swelling ENT exam: Present: mucous membranes moist, other (Positive moderate/severe right maxillary and upper lip edema without erythema, ecchymosis, open wound, significant tenderness. No obvious gingival erythema or abscess) Neck exam: Present: normal inspection. Absent: tenderness, meningismus, lymphadenopathy Respiratory exam: Present: normal lung sounds bilaterally. Absent: respiratory distress, wheezes, rales, rhonchi, stridor Cardiovascular Exam: Present: regular rate, normal rhythm, normal heart sounds. Absent: systolic murmur, diastolic murmur, rubs, gallop, clicks GI/Abdominal exam: Present: soft, normal bowel sounds. Absent: distended, tenderness, guarding, rebound, rigid Extremities exam: Present: normal inspection, full ROM, normal capillary refill. Absent: tenderness, pedal edema, joint swelling, calf tenderness Back exam: Present: normal inspection Neurological exam: Present: alert, oriented X3, CN II-XII intact Psychiatric exam: Present: normal affect, normal mood Skin exam: Present: warm, dry, intact, normal color. Absent: rash Course Vital Signs 04/22/24 04/22/24 15:44 22:00 Temperature 98.3 F 98.3 F Pulse Rate 104 H 84 Respiratory 20 16 Rate Blood Pressure 110/57 132/79 O2 Sat by Pulse 97 95 Oximetry Medical Decision Making - Medical Decision Making Was pt. sent in by a medical professional or institution (, PA, TERRAZZO INSTALLER, urgent care, hospital, or senior care...) When possible be specific @ -No Did you speak to anyone other than the patient for history (EMS, parent, family, police, friend...)? What history was obtained from this source @ -Spoke to mother who provided large amount of HPI. Did you review nursing and triage notes (agree or disagree)? Why? @ -I reviewed and agree with nursing and triage notes Were old charts reviewed (outside hosp., previous admission, EMS record, old EKG, old radiological studies, urgent care reports/EKG's, senior care records)? Report findings @ -Reviewed patient's previous chart from ER visit yesterday with Dr. Welsh where leukocytosis was also discovered and patient treated and discharged with p.o. Augmentin for suspected periapical abscess. Differential Diagnosis (chest pain, altered mental status, abdominal pain women, abdominal pain men, vaginal bleeding, weakness, fever, dyspnea, syncope, headache, dizziness, GI bleed, back pain, seizure, CVA, palpatations, mental health, musculoskeletal)? @ -Angioedema, periapical abscess, cellulitis, anaphylaxis, tension headache, migraine, this is not an exhaustive list. EKG interpreted by me (3pts min.). @ -Not done X-rays interpreted by me (1pt min.). @ -None done CT interpreted by me (1pt min.). @ -CT soft tissue neck shows soft tissue edema of the upper lip with no organizing fluid collection. U/S interpreted by me (1pt. min.). @ -None done What testing was considered but not performed or refused? (CT, X-rays, U/S, labs)? Why? @ -None What meds were considered but not given or refused? Why? @ -Mother declined Reglan. Did you discuss the management of the patient with other professionals (professionals i.e. , PA, TERRAZZO INSTALLER, lab, RT, psych nurse, psychiatric social worker supervisor, editor continuity and script, teacher, chief information security officer, bilingual case manager)? Give summary @ - Spoke to Dr. Brannon who agreed to patient admission and advised consult infectious disease. Was smoking cessation discussed for >3mins.? @ -No Was critical care preformed (if so, how long)? @ -No Were there social determinants of health that impacted care today? How? (Homelessness, low income, unemployed, alcoholism, drug addiction, transportation, low edu. Level, literacy, decrease access to med. care, [place] [facility], rehab)? @ -No Was there de-escalation of care discussed even if they declined (Discuss DNR or withdrawal of care, Hospice)? DNR status @ -No What co-morbidities impacted this encounter? (DM, HTN, Smoking, COPD, CAD, Cancer, CVA, ARF, Chemo, Hep., AIDS, mental health diagnosis, sleep apnea, morbid obesity)? @ -None Was patient admitted / discharged? Hospital course, mention meds given and route, prescriptions, significant lab abnormalities, going to OR and other pertinent info. @ -Lab work shows leukocytosis (19.6)) with left shift. Remaining lab work including lactic acid was unremarkable. CT soft tissue neck shows soft tissue edema of the upper lip with no organizing fluid collection. Patient initially given Benadryl, Pepcid, Solu-Medrol and Toradol for edema and headache. Mother declined Reglan. Unasyn every [address] Welsh for suspected infection along with normal saline. Spoke to Dr. Brannon who agreed to patient admission and advised consult infectious disease. Undiagnosed new problem with uncertain prognosis? @ -No Drug Therapy requiring intensive monitoring for toxicity (Heparin, Nitro, Insulin, Cardizem)? @ -No Were any procedures done? @ -No Diagnosis/symptom? @ -Cellulitis versus periapical abscess Acute, or Chronic, or Acute on Chronic? @ -Acute Uncomplicated (without systemic symptoms) or Complicated (systemic symptoms)? @ -Complicated Side effects of treatment? @ -No Exacerbation, Progression, or Severe Exacerbation? @ -Exacerbation Poses a threat to life or bodily function? How? (Chest pain, [place], [place], pneumonia, PE, COPD, DKA, ARF, appy, cholecystitis, CVA, Diverticulitis, Homicidal, Suicidal, threat to staff... and all critical care pts) @ -No - Lab Data Result diagrams: 04/22/24 18:04 04/22/24 18:04 Lab Results 04/22/24 04/22/24 04/22/24 Range/Units 18:04 18:04 18:04 WBC 19.6 H (3.8-10.6) k/uL RBC 4.24 L (4.30-5.90) m/uL Hgb 12.0 L (13.0-17.5) gm/dL Hct 35.9 L (39.0-53.0) % MCV 84.6 (80.0-100.0) fL MCH 28.3 (25.0-35.0) pg MCHC 33.5 (31.0-37.0) g/dL RDW 14.2 (11.5-15.5) % Plt Count 296 (150-450) k/uL MPV 8.8 Neutrophils % 84 % Lymphocytes % 10 % Monocytes % 5 % Eosinophils % 0 % Basophils % 0 % Neutrophils # 16.4 H (1.3-7.7) k/uL Lymphocytes # 1.9 (1.0-4.8) k/uL Monocytes # 1.0 (0-1.0) k/uL Eosinophils # 0.1 (0-0.7) k/uL Basophils # 0.0 (0-0.2) k/uL Sodium 141 (137-145) mmol/L Potassium 4.1 (3.5-5.1) mmol/L Chloride 109 H (98-107) mmol/L Carbon Dioxide 22 (22-30) mmol/L Anion Gap 10 mmol/L BUN 14 (9-20) mg/dL Creatinine 0.83 (0.66-1.25) mg/dL Est GFR (CKD-EPI)AfAm >90 (>60 ml/min/1.73 sqM) Est GFR (CKD-EPI)NonAf >90 (>60 ml/min/1.73 sqM) Glucose 99 (74-99) mg/dL Plasma Lactic Acid Sudheer 1.1 (0.7-2.0) mmol/L Calcium 9.3 (8.4-10.2) mg/dL Total Bilirubin 0.8 (0.2-1.3) mg/dL AST 31 (17-59) U/L ALT 49 (4-49) U/L Alkaline Phosphatase 74 (38-126) U/L Total Protein 7.2 (6.3-8.2) g/dL Albumin 4.7 (3.5-5.0) g/dL Disposition Clinical Impression: Dental abscess, Cellulitis and abscess of face Disposition: ADMITTED IP TO THIS [facility] Condition: Good Is patient prescribed a controlled substance at d/c from ED?: No Time of Disposition: 20:54 Decision Date: 04/22/24 Decision Time: 20:54
[2024-04-22] MEDS: diphenhydrAMINE 50 MG/ML 1 ML VIAL IVP STA (17:40)
[2024-04-22] MEDS: KETOROLAC 15 MG/ML 1 ML VIAL IVP STA (17:43)
[2024-04-22] MEDS: FAMOTIDINE 20 MG/2 ML VIAL IV STA (17:46)
[2024-04-22] MEDS: methylPREDNISolone SOD SUCCI 125 MG/2 ML VIAL IV STA (17:59)
[2024-04-22] MEDS: SODIUM CHLORIDE 0.9% 1,000 ML IV STA (18:03)
[2024-04-22] MEDS: METOCLOPRAMIDE 5 MG/ML 2 ML VIAL IVP STA (18:04)
[2024-04-22 18:21] LABS: Basophils % (A) 0 %; Eosinophils # (A) 0.1 k/uL (0-0.7); Eosinophils % (A) 0 %; HCT 35.9 % (39.0-53.0); Lymphocytes # (A) 1.9 k/uL (1.0-4.8); Lymphocytes % (A) 10 %; MCH 28.3 pg (25.0-35.0); MCHC 33.5 g/dL (31.0-37.0); MCV 84.6 fL (80.0-100.0); Mean Platelet Volume 8.8; Monocytes % (A) 5 %; Neutrophils # (A) 16.4 k/uL (1.3-7.7); Neutrophils % (A) 84 %; Platelet Count 296 k/uL (150-450); RBC 4.24 m/uL (4.30-5.90); RDW 14.2 % (11.5-15.5); WBC 19.6 k/uL (3.8-10.6)
[2024-04-22 18:55] LABS: ALT 49 U/L (4-49); AST 31 U/L (17-59); African American GFR (CKD) >90 (>60 ml/min/1.73 sqM); Albumin 4.7 g/dL (3.5-5.0); Alkaline Phosphatase 74 U/L (38-126); Anion Gap 10 mmol/L; Blood Urea Nitrogen 14 mg/dL (9-20); Calcium 9.3 mg/dL (8.4-10.2); Carbon Dioxide 22 mmol/L (22-30); Chloride 109 mmol/L (98-107); Glucose 99 mg/dL (74-99); Non-African American GFR(CKD) >90 (>60 ml/min/1.73 sqM); Potassium 4.1 mmol/L (3.5-5.1); Sodium 141 mmol/L (137-145); Total Bilirubin 0.8 mg/dL (0.2-1.3); Total Protein 7.2 g/dL (6.3-8.2)
[2024-04-22] MEDS: AMPICILLIN-SULBACTAM 3 GM in SODIUM CHLORIDE 0.9% 100 ML IVPB STA (19:18)
--- NOTE | 2024-04-22 19:52 | CT ---
EXAMINATION TYPE: CT soft tissue neck w con DATE OF EXAM: 04/22/2024 7:30 PM COMPARISON: None. CLINICAL INDICATION: Male, 28 years old with history of lip infection vs allergic rxn. eval for absce ss; [facility], Lip infection vs allergic rxn. eval for abscess. TECHNIQUE: Standard enhanced CT of the neck. Axial sections with coronal and sagittal reformats were obtained. Contrast used:100 ml mL of Isovue 300 with IV Contrast, (None if empty) Oral contrast used: (None if empty) CT DLP: 451.5 mGycm, Automated exposure control for dose reduction was used. FINDINGS: Brain: Visualized portions are grossly unremarkable. Orbits: Unremarkable Sinuses: Grossly unremarkable. Spaces of the neck: Clear and symmetric. Soft tissue edema involving the upper lip. No organizing flu id collection. Musculoskeletal: No acute osseous pathology. Lymph nodes: Multiple nonenlarged lymph nodes are seen along both anterior chains of the neck. Vascular structures: Visualized major arteries are patent without evidence of aneurysm. Thoracic Inlet/airway: Airway is patent. The lung apices are clear. Soft tissues/Thyroid: Thyroid and remainder of the soft tissues are unremarkable. Other: none. IMPRESSION: Soft tissue edema involving the upper lip. No organizing fluid collection. [facility], , 04/22/2024 7:49 PM
[2024-04-22] MEDS ORDERED: NALOXONE 0.4 MG/ML 1 ML VIAL IV PRN (20:45)
[2024-04-22] MEDS: traZODone HCL 50 MG TAB PO SCH (21:51)
[2024-04-22] MEDS: AMOXIC-POT CLAV 875-125MG 1 EACH TAB PO SCH (21:52)
[2024-04-22] MEDS: KAPVAY PO SCH (21:52)
[2024-04-22] MEDS: PARoxetine 10 MG TAB PO SCH (21:53)
[2024-04-22] MEDS: AMPICILLIN-SULBACTAM 1.5 GM in SODIUM CHLORIDE 0.9% 50 ML IVPB SCH (23:41)
[2024-04-22] MEDS: diphenhydrAMINE 50 MG/ML 1 ML VIAL IVP SCH (23:46)
[2024-04-23] MEDS: methylPREDNISolone SOD SUCCI 125 MG/2 ML VIAL IV SCH (01:38)
[2024-04-23] MEDS: lamoTRIgine 100 MG TAB PO SCH (09:21)
[2024-04-23] MEDS: FAMOTIDINE 20 MG TAB PO SCH (09:21)
[2024-04-23] MEDS: NON FORMULARY DRUG (Atomoxetine Hcl [Strattera] 60 MG Capsule) PO SCH (10:08)
[2024-04-23] MEDS: ENOXAPARIN 40 MG/0.4 ML SYRINGE SQ SCH (10:08)
[2024-04-23] MEDS: AMPICILLIN-SULBACTAM 3 GM in SODIUM CHLORIDE 0.9% 100 ML IVPB SCH (14:46)
[2024-04-23] MEDS ORDERED: AMPICILLIN-SULBACTAM 3 GM in SODIUM CHLORIDE 0.9% 50 ML IVPB SCH (15:00)
[2024-04-23 15:13] LABS: Basophils % (A) 0 %; Eosinophils # (A) 0.1 k/uL (0-0.7); Eosinophils % (A) 1 %; HCT 38.9 % (39.0-53.0); HGB 12.8 gm/dL (13.0-17.5); Lymphocytes # (A) 1.6 k/uL (1.0-4.8); Lymphocytes % (A) 8 %; MCHC 32.9 g/dL (31.0-37.0); MCV 85.2 fL (80.0-100.0); Mean Platelet Volume 8.5; Monocytes # (A) 0.5 k/uL (0-1.0); Monocytes % (A) 3 %; Neutrophils # (A) 16.7 k/uL (1.3-7.7); Neutrophils % (A) 88 %; Platelet Count 341 k/uL (150-450); RBC 4.57 m/uL (4.30-5.90); RDW 13.6 % (11.5-15.5)
--- NOTE | 2024-04-23 16:58 | P.HPIM ---
History of Present Illness H&P Date: 04/23/24 History of present illness; Patient is a 28-year-old male with autism presenting for right facial and upper lip swelling. Symptoms began 3 days ago when he was seen in in the ER for facial swelling and was given morphine, allergy medication and discharged on Augmentin for tooth infection. Yesterday morning patient visited dentist who suggested root canal at a later time and received Medrol Dosepak. He later returned to the ER for progressive right-sided facial pain and swelling with temporary occlusion of the right eye which has since resolved. He has no other complaints at this time. Patient reports absence of fever, chills, dyspnea, wheezing, rash. Labs performed in ED are significant for WBC 19.6, hemoglobin 12.0, neutrophils 16.4. CT soft tissue of the neck with contrast interpreted as soft tissue edema involving upper lip without fluid collection. Spoke with the ER physician, patient admission was accepted by internal medicine service for treatment. REVIEW OF SYSTEMS: Pertinent positives and negatives noted in HPI. PHYSICAL EXAMINATION: Vitals reviewed GENERAL: No acute distress. Well developed, well nourished. HEENT: Moderate right-sided facial edema, upper lip swelling. Pupils are round and equally reacting to light. EOMI. No scleral icterus. No pharyngeal erythema. CARDIOVASCULAR: S1 and S2 present. No murmurs, rubs, or gallops. PULMONARY: Chest is clear to auscultation, no wheezing, rhonchi, or crackles. ABDOMEN: Soft, nontender, nondistended, normoactive bowel sounds. No palpable organomegaly. MUSCULOSKELETAL: No apparent joint swelling and deformities. EXTREMITIES: No apparent cyanosis, clubbing, or pedal edema. NEUROLOGICAL: The patient is alert and oriented x3, Gross neurological examination did not reveal any focal deficits. SKIN: No apparent rashes. Assessment and plan Patient is a 28-year-old male with autism presenting for right facial and upper lip swelling. # Sepsis due to cellulitis of oral cavity Initial temperature 101.3, pulse 104, WBC 19.6 Blood cultures pending Began Unasyn Monitor CBC and vitals ID consulted Chronic Medical Conditions #Anxiety/Depression - Resume home Medication F: P.o. E: Replete as needed N: Heart healthy DVT ppx: Subq Lovenox 40 meq daily Code status: Full code Anticipated discharge place: Home Anticipated discharge time: 1 to 2 days Dictation was produced using [employer] dictation software. Please excuse any grammatical, word or spelling errors. Past Medical History Past Medical History: Asthma, GERD/Reflux, Hearing Disorder / Deafness, Skin Disorder Additional Past Medical History / Comment(s): Autism Spectrum Disorder, mild. ANEMIC WHEN LITTLE. HX GROWTH HORMONE TX. HX MULT EAR INFECTIONS, SL HEARING LOSS. HYPERHYDROSIS. ALLERGIES; FREQ SINUS INFECTIONS; IGA DEFICIENCY. History of Any Multi-Drug Resistant Organisms: None Reported Past Surgical History: Adenoidectomy, Ear Surgery, Tonsillectomy Additional Past Surgical History / Comment(s): BMT, MANY. SINUS SURGRY. Past Anesthesia/Blood Transfusion Reactions: Previous Problems w/ Anesthesia, Family History of Problems w/ Anesthesia Additional Past Anesthesia/Blood Transfusion Reaction / Comment(s): AFTER TONSIL SURGERY, WAS PUT ON VENT BRIEFLY D/T BREATHING PROB; COMBATIVE WHEN GIVEN VERSED. MOTHER HAD BREATHING ISSUE X1. Past Psychological History: ADD/ADHD, Anxiety, Depression, Panic Disorder Additional Psychological History / Comment(s): NEEDLE/BLOOD PHOBIA Smoking Status: Never smoker Past Alcohol Use History: None Reported Past Drug Use History: None Reported - Past Family History Mother Family Medical History: Cancer Additional Family Medical History / Comment(s): CERVICAL Medications and Allergies Home Medications Medication Instructions Recorded Confirmed Type lamoTRIgine [LaMICtal] 75 mg PO HS 12/15/17 04/23/24 History lamoTRIgine [LaMICtal] 150 mg PO DAILY 12/15/17 04/23/24 History PARoxetine HCL [Paxil Cr] 37.5 mg PO HS 06/22/18 04/23/24 History Amoxic-Pot Clav 875-125Mg 1 tab PO Q12HR 1 Days #20 tab 04/21/24 04/23/24 Rx [Augmentin 875-125] Linaclotide [Linzess] 72 mcg PO AC-BRKFST 04/23/24 04/23/24 History methylPREDNISolone Dose Pack See Taper PO DIRECTED 04/23/24 04/23/24 History [Medrol Dose Pack] Allergies Allergy/AdvReac Type Severity Reaction Status Date / Time Cephalosporins Allergy Anaphylaxis Verified 04/23/24 12:11 corn Allergy Unknown Verified 04/23/24 12:11 midazolam [From Versed] Allergy combative Verified 04/23/24 12:11 milk Allergy Unknown Verified 04/23/24 12:11 morphine Allergy Swelling Verified 04/23/24 12:11 wheat Allergy Unknown Verified 04/23/24 12:11 Physical Exam Vitals: Vital Signs Temp Pulse Pulse Resp BP BP Pulse Ox 04/23/24 07:25 98.4 F 92 18 113/56 95 04/23/24 01:30 97.8 F 65 16 148/86 95 04/23/24 00:55 98.6 F 86 17 125/76 94 L 04/22/24 22:00 98.3 F 84 16 132/79 95 04/22/24 15:44 98.3 F 104 H 20 110/57 97 Intake and Output 04/22/24 04/23/24 04/23/24 22:59 06:59 14:59 Other: # Voids 1 Weight 129.274 kg 129.274 kg Results CBC & Chem 7: 04/23/24 14:48 04/22/24 18:04 Labs: Abnormal Lab Results - Last 24 Hours (Table) 04/22/24 04/22/24 Range/Units 18:04 18:04 WBC 19.6 H (3.8-10.6) k/uL RBC 4.24 L (4.30-5.90) m/uL Hgb 12.0 L (13.0-17.5) gm/dL Hct 35.9 L (39.0-53.0) % Neutrophils # 16.4 H (1.3-7.7) k/uL Chloride 109 H (98-107) mmol/L
[2024-04-23] MEDS: lamoTRIgine 25 MG TAB PO SCH (21:13)
--- NOTE | 2024-04-24 07:40 | P.CONS ---
History of Present Illness - Reason for Consult Consult date: 04/23/24 Lip/facial edema, leukocytosis Requesting physician: Arvind Barbosa - Chief Complaint Lip swelling x 1 day - History of Present Illness Patient is a 28-year-old male with a past medical history significant for autism hearing disorder reflux asthma patient apparently has been recently diagnosed with dental infection and abscess. Patient was started on oral Augm entin apparently patient also have received a dose of morphine for the pain by his mother subsequently has been presenting to the hospital with increasing swelling to the lip area and there was also swelling and redness extending to the right cheek and involving the right periorbital area as described by the mother who is being present at the bedside no clear history of any fever or any chills patient complaining of pain to the dental area mostly dull aching worse with chewing but denies having difficulty swallowing no chest pain shortness of breath or cough no nausea vomiting no abdominal pain or any diarrhea patient on presentation to the hospital was afebrile and no fever have been recorded subsequently patient was not tachycardic hypotensive or hypoxic he did have a white count of 19.6 with a left shift creatinine 0.83 electrolyte has been normal liver enzymes are normal blood culture culture currently pending patient did have soft tissue neck CT soft tissue edema involving the upper lip no organizing fluid collection patient was started on Unasyn infectious disease was consulted for further management antibiotic therapy Review of Systems Positive point and negatives has been mentioned in the HPI, complete review of systems was performed and all other systems are negative Past Medical History Past Medical History: Asthma, GERD/Reflux, Hearing Disorder / Deafness, Skin Disorder Additional Past Medical History / Comment(s): Autism Spectrum Disorder, mild. ANEMIC WHEN LITTLE. HX GROWTH HORMONE TX. HX MULT EAR INFECTIONS, SL HEARING LOSS. HYPERHYDROSIS. ALLERGIES; FREQ SINUS INFECTIONS; IGA DEFICIENCY. History of Any Multi-Drug Resistant Organisms: None Reported Past Surgical History: Adenoidectomy, Ear Surgery, Tonsillectomy Additional Past Surgical History / Comment(s): BMT, MANY. SINUS SURGRY. Past Anesthesia/Blood Transfusion Reactions: Previous Problems w/ Anesthesia, Family History of Problems w/ Anesthesia Additional Past Anesthesia/Blood Transfusion Reaction / Comm: AFTER TONSIL SURGERY, WAS PUT ON VENT BRIEFLY D/T BREATHING PROB; COMBATIVE WHEN GIVEN VERSED. MOTHER HAD BREATHING ISSUE X1. Past Psychological History: ADD/ADHD, Anxiety, Depression, Panic Disorder Additional Psychological History / Comment(s): NEEDLE/BLOOD PHOBIA Smoking Status: Never smoker Past Alcohol Use History: None Reported Past Drug Use History: None Reported - Past Family History Mother Family Medical History: Cancer Additional Family Medical History / Comment(s): CERVICAL Medications and Allergies Home Medications Medication Instructions Recorded Confirmed Type lamoTRIgine [LaMICtal] 75 mg PO HS 12/15/17 04/23/24 History lamoTRIgine [LaMICtal] 150 mg PO DAILY 12/15/17 04/23/24 History PARoxetine HCL [Paxil Cr] 37.5 mg PO HS 06/22/18 04/23/24 History Amoxic-Pot Clav 875-125Mg 1 tab PO Q12HR 1 Days #20 tab 04/21/24 04/23/24 Rx [Augmentin 875-125] Linaclotide [Linzess] 72 mcg PO AC-BRKFST 04/23/24 04/23/24 History methylPREDNISolone Dose Pack See Taper PO DIRECTED 04/23/24 04/23/24 History [Medrol Dose Pack] Allergies Allergy/AdvReac Type Severity Reaction Status Date / Time Cephalosporins Allergy Anaphylaxis Verified 04/23/24 12:11 corn Allergy Unknown Verified 04/23/24 12:11 midazolam [From Versed] Allergy combative Verified 04/23/24 12:11 milk Allergy Unknown Verified 04/23/24 12:11 morphine Allergy Swelling Verified 04/23/24 12:11 wheat Allergy Unknown Verified 04/23/24 12:11 Physical Exam Vitals: Vital Signs Temp Pulse Pulse Resp BP BP Pulse Ox 04/23/24 07:25 98.4 F 92 18 113/56 95 04/23/24 01:30 97.8 F 65 16 148/86 95 04/23/24 00:55 98.6 F 86 17 125/76 94 L 04/22/24 22:00 98.3 F 84 16 132/79 95 04/22/24 15:44 98.3 F 104 H 20 110/57 97 Intake and Output 04/22/24 04/23/24 04/23/24 22:59 06:59 14:59 Other: # Voids 1 Weight 129.274 kg 129.274 kg GENERAL DESCRIPTION: Middle-aged male lying in bed, no distress. No tachypnea or accessory muscle of respiration use. HEENT: Shows Pallor , no scleral icterus. Oral mucous membrane is dry. Patient did have some upper lip swelling no redness or drainage NECK: Trachea central, no thyromegaly. LUNGS: Unlabored breathing. Clear to auscultation anteriorly. No wheeze or crackle. HEART: S1, S2, regular rate and rhythm. No loud murmur ABDOMEN: Soft, no tenderness , guarding or rigidity, no organomegaly EXTREMITIES: No edema of feet. SKIN: No rash, no masses palpable. NEUROLOGICAL: The patient is awake, alert, mood and affect normal. Results CBC & Chem 7: 04/23/24 14:48 04/22/24 18:04 Labs: Abnormal Lab Results - Last 24 Hours (Table) 04/22/24 04/22/24 Range/Units 18:04 18:04 WBC 19.6 H (3.8-10.6) k/uL RBC 4.24 L (4.30-5.90) m/uL Hgb 12.0 L (13.0-17.5) gm/dL Hct 35.9 L (39.0-53.0) % Neutrophils # 16.4 H (1.3-7.7) k/uL Chloride 109 H (98-107) mmol/L Assessment and Plan (1) Allergy to cephalosporin Current Visit: Yes Status: Acute Code(s): Z88.1 - ALLERGY STATUS TO OTHER ANTIBIOTIC AGENTS SNOMED Code(s): 135054440 (2) Cellulitis and abscess of face Current Visit: Yes Status: Acute Code(s): L03.211 - CELLULITIS OF FACE; L02.01 - CUTANEOUS ABSCESS OF FACE SNOMED Code(s): 778096683 (3) Dental abscess Current Visit: Yes Status: Acute Code(s): K04.7 - PERIAPICAL ABSCESS WITHOUT SINUS SNOMED Code(s): 816438409 Plan: 1patient presented to hospital with lip swelling mom also reported swelling of the right cheek and periorbital area concerning for a dental infection versus allergic reaction. CT did not show any evidence of abscess 2-leukocytosis possibly due to steroid versus dental infection 3patient did have cephalosporin allergy that we will limit number of antibiotics safe to use 4we will increase dose of Unasyn to 3 g every 6 hours and are going to discontinue of Solu-Medrol 5obtain x-rays of the mandible area Mother at the bedside multiple question answered We will follow on clinical condition and cultures to further adjust medication if needed Thank you for this consultation we will follow the patient along with you Dictation was produced using [employer] dictation software. please excuse any grammatical, word or spelling errors. Time with Patient: Greater than 30
[2024-04-24 07:45] VITALS: RESP 17
--- NOTE | 2024-04-24 08:28 | XR ---
Mandible. HISTORY: Dental/jaw infection. COMPARISON: None. TECHNIQUE: 5 views of the mandible were obtained. FINDINGS: There is no focal intraosseous abnormality or cortical destruction of the mandible. IMPRESSION: No radiographic evidence of jaw infection or osteomyelitis. [facility] Giraldo, , 04/24/2024 8:26 AM
[2024-04-24] MEDS ORDERED: diphenhydrAMINE 50 MG/ML 1 ML VIAL IVP PRN (12:03)
[2024-04-24 13:59] LABS: Basophils % (A) 0 %; Eosinophils # (A) 0.2 k/uL (0-0.7); Eosinophils % (A) 1 %; HCT 39.8 % (39.0-53.0); HGB 13.4 gm/dL (13.0-17.5); Lymphocytes # (A) 1.4 k/uL (1.0-4.8); Lymphocytes % (A) 7 %; MCH 28.4 pg (25.0-35.0); MCHC 33.6 g/dL (31.0-37.0); MCV 84.5 fL (80.0-100.0); Mean Platelet Volume 9.6; Monocytes # (A) 0.9 k/uL (0-1.0); Monocytes % (A) 5 %; Neutrophils # (A) 16.4 k/uL (1.3-7.7); Neutrophils % (A) 86 %; Platelet Count 287 k/uL (150-450); RBC 4.71 m/uL (4.30-5.90); RDW 13.7 % (11.5-15.5); WBC 19.1 k/uL (3.8-10.6)
[2024-04-24 14:24] LABS: African American GFR (CKD) >90 (>60 ml/min/1.73 sqM); Anion Gap 12 mmol/L; Blood Urea Nitrogen 20 mg/dL (9-20); Calcium 9.3 mg/dL (8.4-10.2); Carbon Dioxide 21 mmol/L (22-30); Chloride 108 mmol/L (98-107); Glucose 116 mg/dL (74-99); Non-African American GFR(CKD) >90 (>60 ml/min/1.73 sqM); Potassium 4.9 mmol/L (3.5-5.1); Sodium 141 mmol/L (137-145)
[2024-04-24 15:06] VITALS: BP 108/61; PULSE 67; TEMP 97.3
--- NOTE | 2024-04-25 15:55 | P.PN ---
Subjective Progress Note Date: 04/24/24 Principal diagnosis: Reason for follow-up is dental infection Patient is a 28-year-old male with a past medical history significant for autism hearing disorder reflux asthma patient apparently has been recently diagnosed with dental infection and abscess. Patient being admitted to hospital with worsening swelling of the upper lip as well as swelling to the right max illary and periorbital area CT was negative for any abscess. On today's evaluation that is 04/24/2024, Patient is afebrile patient is currently on room air and denies having any shortness of breath, the patient denies any chest pain or cough, the patient denies any nausea vomiting did not have any abdominal pain and no diarrhea, the patient had lip swelling almost resolved and her right facial and periorbital swelling has resolved. Patient feeling better wants to go home. Patient white count is 19.1 creatinine 0.68 cultures have been negative so far mandible x-ray no evidence of osteomyelitis Objective - Vital Signs Vital signs: Vital Signs Temp 97.3 F L 04/24/24 13:50 Pulse 67 04/24/24 13:50 Resp 17 04/24/24 13:50 BP 108/61 04/24/24 13:50 Pulse Ox 97 04/24/24 13:50 FiO2 Intake & Output 04/24/24 04/24/24 04/25/24 06:59 18:59 06:59 Intake Total 118 Balance 118 Intake: Oral 118 Other: Voiding Method Toilet # Voids 3 - Exam GENERAL DESCRIPTION: Young male male lying in bed in no distress HEENT: Upper lip swelling almost resolved no swelling or redness of the right facial area was noticed RESPIRATORY SYSTEM: Unlabored breathing , decreased breath sounds at bases HEART: S1 S2 regular rate and rhythm , ABDOMEN: Soft , no tenderness - Labs CBC & Chem 7: 04/24/24 13:36 04/24/24 13:41 Labs: Abnormal Lab Results - Last 24 Hours (Table) 04/24/24 04/24/24 Range/Units 13:36 13:41 WBC 19.1 H (3.8-10.6) k/uL Neutrophils # 16.4 H (1.3-7.7) k/uL Chloride 108 H (98-107) mmol/L Carbon Dioxide 21 L (22-30) mmol/L Glucose 116 H (74-99) mg/dL Microbiology - Last 24 Hours (Table) 04/22/24 18:32 Blood Culture - Preliminary Blood Assessment and Plan (1) Allergy to cephalosporin Status: Acute Code(s): Z88.1 - ALLERGY STATUS TO OTHER ANTIBIOTIC AGENTS SNOMED Code(s): 811280416 (2) Cellulitis and abscess of face Status: Acute Code(s): L03.211 - CELLULITIS OF FACE; L02.01 - CUTANEOUS ABSC ESS OF FACE SNOMED Code(s): 787084690 (3) Dental abscess Status: Acute Code(s): K04.7 - PERIAPICAL ABSCESS WITHOUT SINUS SNOMED Code(s): 359551064 Plan: 1patient presented to hospital with lip swelling mom also reported swelling of the right cheek and periorbital area concerning for a dental infection versus allergic reaction. CT did not show any evidence of abscess 2-leukocytosis possibly due to steroid as evidence of any worsening dental infection 3patient did have cephalosporin allergy that we will limit number of antibiotics safe to use 4 x-rays of the mandible area did not show any osteomyelitis patient has shown clinical improvement and wants to go home, will finish therapy with oral Augmentin and close outpatient follow-up discussed with the GENERAL SUPERVISOR for admitting team working on discharge Dictation was produced using [employer] dictation software. please excuse any grammatical, word or spelling errors.
== END 2024-04-24 14:48 | disposition home or self-care (01) ==
LOC: EC 15:33 → 6NMEDSUR 22:01
PROVIDERS: ADMIT Hospitalist; ATTEND Hospitalist
DX: K04.7 Periapical abscess without sinus (principal); K12.2 Cellulitis and abscess of mouth; L02.01 Cutaneous abscess of face; L03.211 Cellulitis of face; A41.9 Sepsis, unspecified organism; D80.2 Selective deficiency of immunoglobulin A [IgA]; F32.A Depression, unspecified; F41.0 Panic disorder [episodic paroxysmal anxiety]; F41.9 Anxiety disorder, unspecified; F84.0 Autistic disorder; F90.9 Attention-deficit hyperactivity disorder, unspecified type; J45.909 Unspecified asthma, uncomplicated; K21.9 Gastro-esophageal reflux disease without esophagitis; Z88.1 Allergy status to other antibiotic agents; Z88.5 Allergy status to narcotic agent; Z79.899 Other long term (current) drug therapy; Z79.1 Long term (current) use of non-steroidal anti-inflammatories (NSAID)
CPT/HCPCS: 96376 ×3; 96366 ×3; 96365; 96375; 99284; 36415; 80053; 80048; 83605; 85025 ×3; 87040; 70110; 70491; G0378 ×3; J1200 ×3; J3490; J0295 ×5; J1885; Q9967; J2919 ×3

== ENCOUNTER 2024-04-27 14:41 | Emergency (ER) | payer BC, OTHER ==
[2024-04-27 15:09] VITALS: RESP 20
--- NOTE | 2024-04-27 16:00 | ED ---
ENT HPI - General Chief complaint: Dental/Oral Stated complaint: mouth swelling Time Seen by Provider: 04/27/24 15:10 Source: patient, family, RN notes reviewed Mode of arrival: wheelchair Limitations: no limitations - History of Present Illness Initial comments: This is a 28-year-old male presenting to the emergency room with his mother for complaint of intraoral dental abscess. Patient was recently admitted to the hospital for lip cellulitis and discharged on oral course of Augmentin. Mother states that she has not scheduled follow-up for the patient. Mother states that she noticed the patient have a abscess of his gum that is developed over the last day. Patient denies fevers, chills, difficulty swallowing or breathing. States that he is feeling well. - Related Data Home Medications Medication Instructions Recorded Confirmed lamoTRIgine [LaMICtal] 75 mg PO HS 12/15/17 04/23/24 lamoTRIgine [LaMICtal] 150 mg PO DAILY 12/15/17 04/23/24 PARoxetine HCL [Paxil Cr] 37.5 mg PO HS 06/22/18 04/23/24 Linaclotide [Linzess] 72 mcg PO AC-BRKFST 04/23/24 04/23/24 Previous Rx's Medication Instructions Recorded Amoxic-Pot Clav 875-125Mg 1 tab PO Q12HR 1 Days #20 tab 04/21/24 [Augmentin 875-125] Allergies Allergy/AdvReac Type Severity Reaction Status Date / Time Cephalosporins Allergy Anaphylaxis Verified 04/27/24 15:05 corn Allergy Unknown Verified 04/27/24 15:05 midazolam [From Versed] Allergy combative Verified 04/27/24 15:05 milk Allergy Unknown Verified 04/27/24 15:05 morphine Allergy Swelling Verified 04/27/24 15:05 wheat Allergy Unknown Verified 04/27/24 15:05 Review of Systems ROS Statement: Those systems with pertinent positive or pertinent negative responses have been documented in the HPI. ROS Other: All systems not noted in ROS Statement are negative. Past Medical History Past Medical History: Asthma, GERD/Reflux, Hearing Disorder / Deafness, Skin Disorder Additional Past Medical History / Comment(s): Autism Spectrum Disorder, mild. ANEMIC WHEN LITTLE. HX GROWTH HORMONE TX. HX MULT EAR INFECTIONS, SL HEARING LOSS. HYPERHYDROSIS. ALLERGIES; FREQ SINUS INFECTIONS; IGA DEFICIENCY. History of Any Multi-Drug Resistant Organisms: None Reported Past Surgical History: Adenoidectomy, Ear Surgery, Tonsillectomy Additional Past Surgical History / Comment(s): BMT, MANY. SINUS SURGRY. Past Anesthesia/Blood Transfusion Reactions: Previous Problems w/ Anesthesia, Family History of Problems w/ Anesthesia Additional Past Anesthesia/Blood Transfusion Reaction / Comment(s): AFTER TONSIL SURGERY, WAS PUT ON VENT BRIEFLY D/T BREATHING PROB; COMBATIVE WHEN GIVEN VERSED. MOTHER HAD BREATHING ISSUE X1. Past Psychological History: ADD/ADHD, Anxiety, Depression, Panic Disorder Smoking Status: Never smoker Past Alcohol Use History: None Reported Past Drug Use History: None Reported - Past Family History Mother Family Medical History: Cancer Additional Family Medical History / Comment(s): CERVICAL General Exam Limitations: no limitations General appearance: alert, in no apparent distress Expanded Teeth exam: Present: other (superior gingiva abscess with fluctuance) Neck exam: Present: normal inspection. Absent: tenderness, meningismus, lymphadenopathy Respiratory exam: Present: normal lung sounds bilaterally. Absent: respiratory distress, wheezes, rales, rhonchi, stridor Cardiovascular Exam: Present: regular rate, normal rhythm, normal heart sounds. Absent: systolic murmur, diastolic murmur, rubs, gallop, clicks GI/Abdominal exam: Present: soft, normal bowel sounds. Absent: distended, tenderness, guarding, rebound, rigid Extremities exam: Present: normal inspection, full ROM, normal capillary refill. Absent: tenderness, pedal edema, joint swelling, calf tenderness Course Vital Signs 04/27/24 15:05 Temperature 97.5 F L Pulse Rate 119 H Respiratory 20 Rate Blood Pressure 91/55 O2 Sat by Pulse 96 Oximetry Medical Decision Making - Medical Decision Making Was pt. sent in by a medical professional or institution (, PA, SYSTEM ADMINISTRATION MANAGER, urgent care, hospital, or group home...) When possible be specific @ -No Did you speak to anyone other than the patient for history (EMS, parent, family, police, friend...)? What history was obtained from this source @ -Spoke to the patient's mother at bedside who states that the patient has been taking Augmentin as prescribed and has roughly 4 days left of antibiotic treatment Did you review nursing and triage notes (agree or disagree)? Why? @ -I reviewed and agree with nursing and triage notes Were old charts reviewed (outside hosp., previous admission, EMS record, old EKG, old radiological studies, urgent care reports/EKG's, group home records)? Report findings @ -No old charts were reviewed Differential Diagnosis (chest pain, altered mental status, abdominal pain women, abdominal pain men, vaginal bleeding, weakness, fever, dyspnea, syncope, headache, dizziness, GI bleed, back pain, seizure, CVA, palpatations, mental health, musculoskeletal)? @ -Cellulitis of upper lip, dental abscess, dental caries, dental pain, this list is not all inclusive EKG interpreted by me (3pts min.). @ -none X-rays interpreted by me (1pt min.). @ -None done CT interpreted by me (1pt min.). @ -None done U/S interpreted by me (1pt. min.). @ -None done What testing was considered but not performed or refused? (CT, X-rays, U/S, labs)? Why? @ -None What meds were considered but not given or refused? Why? @ -None Did you discuss the management of the patient with other professionals (professionals i.e. , PA, SYSTEM ADMINISTRATION MANAGER, lab, RT, psych nurse, community mental health social worker, paint supervisor, teacher, property utilization officer, nurse outreach case manager)? Give summary @ -No Was smoking cessation discussed for >3mins.? @ -No Was critical care preformed (if so, how long)? @ -No Were there social determinants of health that impacted care today? How? (Homelessness, low income, unemployed, alcoholism, drug addiction, transportation, low edu. Level, literacy, decrease access to med. care, [facility], rehab)? @ -No Was there de-escalation of care discussed even if they declined (Discuss DNR or withdrawal of care, Hospice)? DNR status @ -No What co-morbidities impacted this encounter? (DM, HTN, Smoking, COPD, CAD, Cancer, CVA, ARF, Chemo, Hep., AIDS, mental health diagnosis, sleep apnea, morbid obesity)? @ -None Was patient admitted / discharged? Hospital course, mention meds given and route, prescriptions, significant lab abnormalities, going to OR and other pertinent info. @ -Discharge. 28 female presenting with gingival abscess. On evaluation has noted a fluctuant area consistent with gingival abscess. Area was lanced with 18-gauge needle with purulent secretions. Recommend that patient continue warm salt water rinses over the next few days and complete full course Augmentin as prescribed in addition to following up with primary care provider and infectious disease as scheduled. Discussed with Dr. Angel Undiagnosed new problem with uncertain prognosis? @ -No Drug Therapy requiring intensive monitoring for toxicity (Heparin, Nitro, Insulin, Cardizem)? @ -No Were any procedures done? @ -No Diagnosis/symptom? @ -gingival abscess Acute, or Chronic, or Acute on Chronic? @ -acute Uncomplicated (without systemic symptoms) or Complicated (systemic symptoms)? @ -uncomplicated Side effects of treatment? @ -No Exacerbation, Progression, or Severe Exacerbation? @ -No Poses a threat to life or bodily function? How? (Chest pain, USA, PA, pneumonia, PE, COPD, DKA, ARF, appy, cholecystitis, CVA, Diverticulitis, Homicidal, Suicidal, threat to staff... and all critical care pts) @ -No Disposition Clinical Impression: Dental abscess Disposition: HOME SELF-CARE Condition: Good Instructions (If sedation given, give patient instructions): Dental Abscess (ED) Additional Instructions: Please return to the Emergency Department if symptoms worsen or any other concerns. Continue Augmentin as prescribed. Recommend that you follow-up with primary care provider in the next 1 to 2 days for further evaluation. Continue warm salt water rinses every 2 hours over the next 3 days Is patient prescribed a controlled substance at d/c from ED?: No Referrals: Astrid Izquierdo MD [Primary Care Provider] - 1-2 days Time of Disposition: 16:00
[2024-04-27 16:16] VITALS: BP 92/60; PULSE 101; TEMP 98
== END 2024-04-27 17:47 | disposition home or self-care (01) ==
LOC: EC 14:41
DX: K04.7 Periapical abscess without sinus (principal); Z88.1 Allergy status to other antibiotic agents; Z88.5 Allergy status to narcotic agent; Z91.018 Allergy to other foods; Z91.011 Allergy to milk products; Z88.8 Allergy status to other drugs, medicaments and biological substances
CPT/HCPCS: 99282

== ENCOUNTER → 2024-05-11 | Outpatient (CLI) | payer OTHER ==
[2024-05-11 10:15] LABS: Basophils # (A) 0.1 k/uL (0-0.2); Basophils % (A) 1 %; Eosinophils # (A) 0.2 k/uL (0-0.7); Eosinophils % (A) 3 %; HCT 40.9 % (39.0-53.0); HGB 13.5 gm/dL (13.0-17.5); Lymphocytes # (A) 2.6 k/uL (1.0-4.8); Lymphocytes % (A) 29 %; MCH 27.9 pg (25.0-35.0); MCV 84.5 fL (80.0-100.0); Mean Platelet Volume 8.9; Monocytes # (A) 0.5 k/uL (0-1.0); Monocytes % (A) 6 %; Neutrophils # (A) 5.5 k/uL (1.3-7.7); Neutrophils % (A) 60 %; Platelet Count 259 k/uL (150-450); RBC 4.84 m/uL (4.30-5.90); RDW 14.7 % (11.5-15.5); WBC 9.1 k/uL (3.8-10.6)
[2024-05-11 10:18] LABS: ALT 34 U/L (4-49); AST 23 U/L (17-59); African American GFR (CKD) >90 (>60 ml/min/1.73 sqM); Albumin 4.9 g/dL (3.5-5.0); Alkaline Phosphatase 79 U/L (38-126); Anion Gap 13 mmol/L; Blood Urea Nitrogen 9 mg/dL (9-20); Calcium 9.7 mg/dL (8.4-10.2); Carbon Dioxide 24 mmol/L (22-30); Chloride 106 mmol/L (98-107); Globulin 2.5 g/dL; Glucose 97 mg/dL (74-99); Non-African American GFR(CKD) >90 (>60 ml/min/1.73 sqM); Potassium 4.5 mmol/L (3.5-5.1); Sodium 143 mmol/L (137-145); Total Bilirubin 0.5 mg/dL (0.2-1.3); Total Protein 7.4 g/dL (6.3-8.2)
== END | disposition home or self-care (01) ==
LOC: LABWHC1 09:18
PROVIDERS: ATTEND Family Medicine
DX: K04.7 Periapical abscess without sinus (principal)
CPT/HCPCS: 36415; 80053; 83605; 85025